=== PATIENT | male | born 1985 | race Caucasian/White ===

== ENCOUNTER 2023-09-17 18:15 | Emergency (ER) | payer OTHER, SELFPAY ==
[2023-09-17 18:20] VITALS: BMI 30.1
--- NOTE | 2023-09-17 18:31 | ED.GENMED ---
History of Present Illness
General
Chief Complaint: Musculo-Skeletal Complaint
Source: patient
Exam Limitations: none
Time Seen by Provider: 09/17/23 18:18
Nursing documentation reviewed up to this point in time: agreed with
History of Present Illness
History of Present Illness:
Patient is a 38-year-old male presents the ER for evaluation of low back pain. Patient reports he has a recent history of sciatica off and on for the past several months however today he was lifting his approximate 40 pound 4-year-old and felt pain
across his lower back. He denies any sciatica now pain in his lower back. He could not get up EMS was called. EMS did not give anything for pain. He reports pain is across his lower back with any position change. He denies any numbness
tingling or weakness in extremities. He denies any loss of bowel or bladder.
Review of Systems
Review of Systems
Allergies reviewed?: Yes
All Other Systems: ROS reviewed and negative except as documented in HPI and ROS
Constitutional: Reports no symptoms
: Denies incontinence, urgency or discharge
Musculoskeletal: Reports back pain (low back pain )
Skin: Reports no symptoms
Neurological: Reports no symptoms
Hematologic/Lymphatic: Reports no symptoms
Psychiatric: Reports no symptoms
Phy Exam
General Physical Exam
General Presentation: no apparent distress
General age: appears stated age
General Skin: warm and dry
General Habitus: normal
General Mental: alert
General Hydration: appears well hydrated
Neurological Exam
Neurological Exam: alert, oriented x3, normal reflexs (Normal patellar reflexes) and other (Normal distal sensation bilaterally normal dorsiflexion plantarflexion)
Musculoskeletal Exam
Musculoskeletal Exam: other (nml inspection to lower back no erythema no bony tenderness + b/l paralumbar tenderness )
Skin Exam
Skin Exam: normal color and warm/dry
Psychiatric Exam
Psychiatric Exam: normal mood/affect
Course
Orders/Labs/Results
Orders:
Orders
09/17/23 18:33
Dexamethasone Sod Phosphate [Decadron] 10 mg IM NOW STA
diazePAM [Valium Injection] 5 mg IM NOW STA
09/17/23 18:34
Acetaminophen [Tylenol] 1,000 mg PO NOW STA
09/17/23 20:47
HYDROmorphone [Dilaudid] 1 mg IM NOW STA
09/17/23 22:37
IV Insert/Care/Rem.- Treatment PRN
HYDROmorphone [Dilaudid] 1 mg IV NOW STA
09/17/23 23:38
Ketorolac [Toradol] 15 mg IV NOW STA
diazePAM [Valium Injection] 5 mg IV NOW STA
09/18/23 00:12
Lumbar Spine Complete, 4 View [CR Lumbar Spine Comp Min 4 Vw*] Urgent
Comment:
Reason For Exam: low back pain
Vital Signs
Initial and Last Documented VS:
Initial Vital Signs
Temp Pulse Resp Pulse Ox
97.9 F 102 16 98
09/17/23 18:20 09/17/23 18:20 09/17/23 18:20 09/17/23 18:20
Last Documented Vital Signs
Temp Pulse Resp BP Pulse Ox
97.9 F 96 22 134/71 98
09/17/23 18:20 09/18/23 02:59 09/18/23 02:59 09/17/23 22:00 09/18/23 02:59
MDM/Problems Addressed
Differential Diagnosis Includes:
not limited to:lumbar strain
MDM/Problems Addressed:
Patient is a 38-year-old male with intermittent static in the past however he was lifting his 4-year-old today who was approximately 40 pounds and felt pain in his lower back. He has a history of intermittent sciatica in the past however today he
describes pain across his lower back only and no radiation. He denies any associated numbness tingling weakness. He denies any loss of bowel or bladder. He presented via EMS as he was not able to get up on this floor. While patient was here he
received IM medications including Valium and Decadron and oral Tylenol recently took Aleve prior to coming to the ER. Patient was monitored here and continues to complain of low back pain worse with position change though we have attempted to get
him to move and sit up several times. Patient received IV hydromorphone for pain but still complains of pain. He was able to slightly sit up and urinate normally in a urinal. With continued pain will attempt to medicate 1 more time with IV IV
Toradol /Valium however I did have a discussion with patient that this will take time. He still presents very muscularly and has no neurological deficits. Plan to reassess after he has medicated again for discharge not limited to muscle strain.
0015:Care of pt at this time transferred to DR Mcelroy pt requesting xray. pt's continues to exam like musculoskeletal back pain however will obtain x-ray and plan for discharge home. Valium steroids and lidocaine patch sent to patient's pharmacy
discussed follow-up with family doctor or Ortho
Chronic conditions affecting care:
sciatica
*Pulse Oximetry
Patient hypoxic: no
*Critical Care Note
Total Time (30-74mins, 75-104mins- exclusive of procedures): Not Applicable
ED Attending Note
-
Portions of this chart may have been created with voice recognition software.� Occasional wrong word or��sound alike� substitutions may have occurred due to the inherent limitations of voice recognition software.
Discharge Plan
Departure
Patient Disposition: Home (Routine Discharge)
Patient with high blood pressure during this ER visit?: Yes
Condition: Fair
Covid-19: Not Applicable
Discharge Problem:
lumbar strain
Instructions: Low Back Pain (DC), Muscle Strain (DC)
Prescriptions:
New
diazepam [Valium] 5 mg tablet
5 mg PO TID PRN (Reason: muscle spasm) Qty: 10 0RF
lidocaine 5 % adhesive patch,medicated
1 patch topical DAILY Qty: 15 0RF
Rx Instructions:
Remove after 12 hours
prednisone 10 mg Tablet
See Rx Instructions .ROUTE .COMPLEX Qty: 30 0RF
Rx Instructions:
Take By Mouth:
40 mg daily x3 days, 30 mg daily x3 days,
20 mg daily x3 days, 10 mg daily x3 days.
Referrals:
Eneida Murphy DO [Family Provider] -
Jude Aj MD [Active] -
Activity Restrictions/Additional Instructions:
As discussed Tylenol every 4-6 hours. Steroids as directed. You were given Valium, muscle relaxer to take 5 mg every 8 hours as needed. This will cause drowsiness no driving or drink alcohol taking this medication. Do not take your
cyclobenzaprine as this is the same type of medication but stronger.
Ice the affected area for the first 24 hours followed by warm moist heat. Follow-up closely with family doctor the next 2 days and orthopedics if needed .
Interventions
Interventions:
*Risk Screen - Suicide Last Done: 09/17/23 18:30
*General Assessment Last Done: 09/17/23 18:21
*Neglect/Abuse Screening Last Done: 09/17/23 18:30
ED- Fall Risk Assessment Last Done: 09/18/23 02:59
*ED COVID-19 Vaccine History Last Done: 09/17/23 18:21
*Nursing Disposition Last Done: 09/18/23 02:59
ED-Musculoskeletal Assessment Last Done: 09/17/23 18:31
Discharge Date and Time
Discharge Date/Time: 09/18/23 03:01
Print Language: IRANIAN
[2023-09-17] MEDS: TYLENOL 1000 MG PO (18:53)
[2023-09-17] MEDS: DECADRON 10 MG IM (18:54)
[2023-09-17] MEDS: VALIUM INJECTION 5 MG IM (18:59)
[2023-09-17 19:00] VITALS: BP 128/92
[2023-09-17 20:00] VITALS: BP 128/80
[2023-09-17] MEDS: DILAUDID 1 MG IM (20:49)
[2023-09-17 21:00] VITALS: BP 140/78
[2023-09-17 22:00] VITALS: BP 134/71
[2023-09-17] MEDS: DILAUDID 1 MG IV (22:46)
[2023-09-17] MEDS: VALIUM INJECTION 5 MG IV (23:45)
[2023-09-17] MEDS: TORADOL 15 MG IV (23:45)
== END 2023-09-18 03:01 | disposition home or self-care (01) ==
LOC: EMR 18:15
PROVIDERS: EMERGENCY PHYSICIAN Emergency Medicine; FAMILY PHYSICIAN Family Medicine
DX: S39.012A Strain of muscle, fascia and tendon of lower back, initial encounter (principal); X58.XXXA Exposure to other specified factors, initial encounter
CPT/HCPCS: 99283; 96374; 96375; 96376; 96372; 72110

== ENCOUNTER → 2024-07-26 12:29 | Outpatient (REF) | payer OTHER, SELFPAY | LOC: HWRAD 12:29 | PROVIDERS: ATTENDING PHYSICIAN Chiropractor; FAMILY PHYSICIAN Family Medicine | DX: M54.2 Cervicalgia (principal) | CPT/HCPCS: 72052 ==